=== PATIENT | female | born 1995 | race Hispanic/Latino ===

== ENCOUNTER 2017-01-07 14:33 | Emergency (ER) | payer OTHER ==
[~2017-01-07] VITALS: Ht 162.6 cm; Wt 86.6 kg
[2017-01-07] MEDS ORDERED: METF500T PO (14:45)
[2017-01-07] MEDS ORDERED: HYDR-4274 PO (14:45)
[2017-01-07 18:07] VITALS: BP 162/70
== END 2017-01-07 18:54 | disposition home or self-care (01) ==
LOC: M ED 17:51
DX: F32.9 Major depressive disorder, single episode, unspecified (principal); R45.86 Emotional lability

== ENCOUNTER 2017-08-08 03:44 | Emergency (ER) | payer OTHER ==
[~2017-08-08] VITALS: Ht 165.1 cm; Wt 77.3 kg
[~2017-08-08 03:44] MED LIST: HYDR50TA70 PO; METF500T13 PO
[2017-08-08] MEDS ORDERED: VENL75TA2 PO (04:04)
[2017-08-08] MEDS ORDERED: YAZ1TAB PO (04:04)
[2017-08-08] MEDS ORDERED: XANA1TAB2 PO (04:04)
[2017-08-08] MEDS ORDERED: VALT1TAB PO (04:10)
[2017-08-08] MEDS ORDERED: DOXY100C37 PO (04:10)
[2017-08-08 05:29] VITALS: BP 102/61
== END 2017-08-08 05:31 | disposition home or self-care (01) ==
LOC: EDBD 03:44 → M ED 03:44
DX: Z60.9 Problem related to social environment, unspecified (principal); F41.9 Anxiety disorder, unspecified; F17.210 Nicotine dependence, cigarettes, uncomplicated; Z79.3 Long term (current) use of hormonal contraceptives; Z79.899 Other long term (current) drug therapy; Z88.0 Allergy status to penicillin; Z88.8 Allergy status to other drugs, medicaments and biological substances

== ENCOUNTER 2018-01-27 15:29 | Emergency (ER) | payer OTHER ==
[2018-01-27] MEDS: ONDANSETRON 4MG/2ML VIAL (J2405) IV (16:45)
[2018-01-27] MEDS: NS 1,000 ML IV (16:45)
[2018-01-27 17:17] LABS: BASO % 0.4 % (0.0-1.0); EOS # 0.1 10^3/uL (0.0-0.50); EOS % 1.1 % (0.0-3.0); HEMATOCRIT 37.6 % (36.0-47.0); HEMOGLOBIN 12.9 g/dl (12.0-16.0); IMMATURE GRANULOCYTE % 0.4 % (0-3.0); LYMPH # 2.3 10^3/uL (1.5-6.5); LYMPH % 20.5 % (24.0-44.0); MEAN CORPUSCULAR HEMOGLOBIN 29.1 pg (27.0-33.0); MEAN CORPUSCULAR HGB CONC 34.3 g/dl (32.0-36.5); MEAN CORPUSCULAR VOLUME 84.9 fl (80.0-96.0); MONO # 0.5 10^3/uL (0.0-0.8); MONO % 4.6 % (0.0-5.0); PLATELET COUNT, AUTOMATED 285 10^3/uL (150-450); RED BLOOD COUNT 4.43 10^6/uL (4.00-5.40); RED CELL DISTRIBUTION WIDTH 11.8 % (11.5-14.5)
[2018-01-27 17:34] LABS: ALBUMIN 3.5 GM/DL (3.2-5.2); ALBUMIN/GLOBULIN RATIO 0.88 (1.00-1.93); ALKALINE PHOSPHATASE 48 U/L (45-117); ALT/SGPT 22 U/L (12-78); ANION GAP 10 MEQ/L (8-16); AST/SGOT 11 U/L (7-37); BILIRUBIN,DIRECT 0.1 MG/DL (0.0-0.2); BILIRUBIN,TOTAL 0.3 MG/DL (0.2-1.0); BLOOD UREA NITROGEN 7 MG/DL (7-18); CARBON DIOXIDE LEVEL 26 MEQ/L (21-32); CHLORIDE LEVEL 104 MEQ/L (98-107); CREATININE FOR GFR 0.65 MG/DL (0.55-1.30); GLOMERULAR FILTRATION RATE > 60.0 (>60); GLUCOSE, FASTING 75 MG/DL (70-100); LIPASE 84 U/L (73-393); POTASSIUM SERUM 3.8 MEQ/L (3.5-5.1); SODIUM LEVEL 140 MEQ/L (136-145); TOTAL PROTEIN 7.5 GM/DL (6.4-8.2)
== END 2018-01-27 17:56 | disposition home or self-care (01) ==
LOC: M ED 15:29
DX: O21.0 Mild hyperemesis gravidarum (principal); Z79.899 Other long term (current) drug therapy; Z88.0 Allergy status to penicillin
CPT/HCPCS: J2405